=== PATIENT | male | born 2000 | race Hispanic/Latino ===

== ENCOUNTER 2021-06-04 11:38 | Observation (INO) | payer OTHER ==
[2021-06-03 15:01] LABS: BASOPHILS % (AUTO) 0.5 % (0.0-5.0); EOSINOPHILS % (AUTO) 1.6 % (0.0-8.0); HEMATOCRIT 45.5 % (42-54); LYMPHOCYTES % (AUTO) 22.2 % (21.0-51.0); MEAN CORPUSCULAR HEMOGLOBIN 31.6 pg (27.0-33.0); MEAN CORPUSCULAR HGB CONC 34.7 g/dL (32.0-36.0); MONOCYTES % (AUTO) 8.3 % (3.0-13.0); NEUTROPHILS % (AUTO) 67.2 % (40.0-77.0); PLATELET COUNT (AUTO) 278 K/uL (130-400); RED CELL DISTRIBUTION WIDTH 12.1 % (11.0-15.5); WHITE BLOOD COUNT (AUTO) 8.2 K/uL (4.8-10.8)
[2021-06-03 15:10] LABS: POTASSIUM 4.1 mmol/L (3.5-5.1)
[2021-06-03 15:11] VITALS: BP 140/65
[2021-06-03 15:13] LABS: INR 0.95 (0.85-1.15); PROTHROMBIN TIME 10.4 SEC (9.6-11.6)
[2021-06-03 15:15] LABS: PARTIAL THROMBOPLASTIN TIME 26.5 SEC (26.3-35.5)
[2021-06-04] VITALS (9 sets, daily range): BP systolic 110–133; BP diastolic 56–83
[2021-06-04] MEDS: CEFAZOLIN SODIUM 2 GM VIAL IV SCH (06:00)
[~2021-06-04 11:38] MED LIST: LISI10TA24 PO
[2021-06-04] MEDS ORDERED: 0.9%NACL 1000ML 1,000 ML IV ONE (13:02)
[2021-06-04] MEDS ORDERED: CEFAZOLIN SODIUM 1 GM VIAL ONE (16:44)
[2021-06-04] MEDS ORDERED: MIDAZOLAM HCL 1 MG/ML 2ML VIAL ONE ×4 (16:44→18:39)
[2021-06-04] MEDS ORDERED: MEPERIDINE-PF 50 MG/ML SYG ONE (16:44)
[2021-06-04] MEDS ORDERED: BUPIVACAINE/PF 0.25% 30ML VIAL IJ ONE (16:44)
[2021-06-04] MEDS ORDERED: LIDOCAINE HCL 1% MDV 50ML VIAL ONE (16:44)
[2021-06-04] MEDS ORDERED: MEPERIDINE-PF 25 MG/ML SYG ONE (18:07)
[2021-06-04] MEDS ORDERED: IOHEXOL-350 50ML VIAL IV ONE (18:13)
[2021-06-04] MEDS ORDERED: DiphenhydrAMINE HCL 50 MG/ML VIAL ONE (18:39)
[2021-06-04] MEDS ORDERED: LISINOPRIL 10 MG TABLET PO SCH (21:00)
[2021-06-04] MEDS: ACETAMINOPHEN WITH CODEINE 1 TAB TAB PO PRN (21:25)
[2021-06-05 04:00] VITALS: BP 111/69
[2021-06-05] MEDS: CEFAZOLIN SODIUM 2 GM VIAL IV SCH (05:05)
[2021-06-05] MEDS: ACETAMINOPHEN WITH CODEINE 1 TAB TAB PO PRN ×2 (05:20→13:51)
[2021-06-05 08:45] VITALS: BP 110/67
[2021-06-05 11:59] VITALS: BP 127/74
[2021-06-05] MEDS ORDERED: TRAM50TA4 PO (12:22)
== END 2021-06-05 14:24 | disposition home or self-care (01) ==
LOC: DAH 11:38 → 4AH 11:39 → DAH 11:39
PROVIDERS: ADMIT Internal Medicine Cardiovascular Disease; ATTEND Internal Medicine Cardiovascular Disease
DX: I44.2 Atrioventricular block, complete (principal); Z45.010 Encounter for checking and testing of cardiac pacemaker pulse generator [battery]; Q24.6 Congenital heart block; T82.118A Breakdown (mechanical) of other cardiac electronic device, initial encounter; Q24.9 Congenital malformation of heart, unspecified; Z79.899 Other long term (current) drug therapy; Z98.890 Other specified postprocedural states
CPT/HCPCS: 33208; 36415; 71045; 80048; 85025; 85610; 85730; 93005; A4215; A4216; A4221; A4222; A4223 ×3; A4606; A4663; C1785; C1894; C1898 ×2; G0378 ×18; J0690; J1200; J1644; J2175 ×2; J2250 ×4; J3490 ×2; J7030; Q9967; 99156; 99157